=== PATIENT | female | born 1965 | race Caucasian/White ===

== ENCOUNTER 2018-06-29 16:47 | Emergency (ER) | payer BC ==
--- NOTE | 2018-06-29 16:51 | UC ---
Hand/Wrist HPI - HPI Summary HPI Summary: Patient is 52 year old female, who presents today to the urgent care with right wrist injury yesterday. She reports that she tripped and fell and landed on her right wrist. she has significant pain in her right wrist and also reports pain in mid forearm and painful with moving the elbow as well. Any movement of the wrist is very painful. There is associated swelling She took 2 Tylenol last night - History Of Current Complaint Stated Complaint: R WRIST INJURY Time Seen by Provider: 06/29/18 16:48 Hx Obtained From: Patient Hx Last Menstrual Period: year ago,post menopause ?: No - Allergies/Home Medications Allergies/Adverse Reactions: Allergies Allergy/AdvReac Type Severity Reaction Status Date / Time No Known Allergies Allergy Verified 06/29/18 17:00 Home Medications: Home Medications Acetaminophen [Tylenol] 325 mg PO 06/29/18 [History] Insulin GLARGINE(*) [Lantus(*)] 30 units 06/29/18 [History] Insulin NPH Hum/Reg Insulin Hm [Novolin 70-30 Flexpen] 16 units 06/29/18 [ History] PMH/Surg Hx/FS Hx/Imm Hx - Additional Past Medical History Additional PMH: type 1 diabetes mellitus Hyperlipidemia , weaned off statin medication Family history significant for hypertension in her father otherwise noncontributory Previously Healthy: Yes Review of Systems All Other Systems Reviewed And Are Negative: Yes Constitutional: Positive: Negative Skin: Positive: Negative Eyes: Positive: Negative ENT: Positive: Negative Respiratory: Positive: Negative Cardiovascular: Positive: Negative Gastrointestinal: Positive: Negative Genitourinary: Positive: Negative Motor: Positive: Negative Neurovascular: Positive: Negative Musculoskeletal: Positive: Arthralgia - right wrist, forearm and right elbow, Decreased ROM - right wrist and right elbow, Edema - right wrist Neurological: Positive: Negative Psychological: Positive: Negative Is Patient Immunocompromised?: No Physical Exam - Summary Physical Exam Summary: Physical Exam: Const: Appears well. No signs of apparent distress present. Alert and oriented x 3. Musculo: Walks with a normal gait. rightWrist: Insp/Palp: Skin is warm, dry, and intact. swelling of the right wrist is noted. Tenderness to palpation on the dorsal aspect of the right wrist. No tenderness to palpation at the metacarpals and at the fingers. 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 No swelling noted. Painful pronation and supination Right elbow : Limited and painful range of motion, Tenderness on lateral aspect of elbow. Head/Face: Atraumatic, normocephalic on inspection. Eyes: EOMI and PERRLA in both eyes. Conjunctivae clear. No discharge noted ENT: Hearing normal Respiratory: Respirations are unlabored. Lungs clear to auscultation bilaterally, no wheezing , rhonchi or rales noted . CVS: Regular rate and Rhythm, S1S2 normal , no murmurs identified. Extremities: Peripheral circulation is grossly normal. Pulses 2+ Abdomen : Soft non tender Skin: No lesions or rash located on the upper extremities or on the lower extremities. Neuro: Cranial nerves II to XII intact, motor and sensory intact. DTR Intact bilaterally. Mood is normal. Affect is normal. Triage Information Reviewed: Yes Vital Signs Reviewed: Yes Diagnostics - Radiology No standard instances Radiology Interpretation Completed By: Radiologist - x-ray of the right wrist, right forearm and right elbow:There is a slightly impacted fracture at the neck of the right radius. Remaining bones of the right forearm and wrist are otherwise intact and anatomically aligned. Hand/Wrist Course/Dx - Course Course Of Treatment: During the visit today, we obtained x-rays of the right wrist, forearm and the right elbow that demonstrate a slightly impacted fracture at the neck of the right radius. Remaining bones of the right forearm and wrist are otherwise intact and anatomically aligned. She also appears to have her wrist contusion We discussed the findings and further plan treated with a sling and her wrist brace and she will follow up with orthopedics in 2-3 days Patient expressed understanding . - Differential Dx/Diagnosis Provider Diagnosis: Right radial head fracture, Contusion of right wrist, initial encounter Discharge - Sign-Out/Discharge Documenting (check all that apply): Patient Departure All imaging exams completed and their final reports reviewed: Yes - Discharge Plan Condition: Stable Disposition: HOME Patient Education Materials: Elbow Fracture (ED), Contusion in Adults (ED) Referrals: Romelia Nieto MD [Primary Care Provider] - Easton Estrada MD [Medical Doctor] - 3 Days Additional Instructions: Continue use of sling and the brace . Pain control as needed with Tylenol. ice locally 15 minutes at a time, 3-4 times a day follow up with orthopedics in 2-3 days Patients blood pressure slightly high (prehypertensive range) in Urgent care today , plan follow up with PCP for better control. Return to Urgent care / ER if symptoms get worse. - Billing Disposition and Condition Condition: STABLE Disposition: Home
[2018-06-29 16:59] VITALS: BP 121/69
== END 2018-06-29 18:30 | disposition home or self-care (01) ==
LOC: UCEAST 16:47
DX: S52.134A Nondisplaced fracture of neck of right radius, initial encounter for closed fracture (principal); S60.211A Contusion of right wrist, initial encounter; W01.0XXA Fall on same level from slipping, tripping and stumbling without subsequent striking against object, initial encounter; Y92.9 Unspecified place or not applicable; E10.9 Type 1 diabetes mellitus without complications; Z79.4 Long term (current) use of insulin; E78.5 Hyperlipidemia, unspecified
CPT/HCPCS: 99211; G0463